=== PATIENT | female | born 1980 | race Caucasian/White ===

== ENCOUNTER 2016-06-28 23:56 | Emergency (ER) | payer BC ==
--- NOTE | ~2016-06-28 | ER ---
PATIENT'S NAME: JAZMYNE LE [facility] AGE: 36 Y [address] ROOM: [place] [address] LOCATION: [facility] ADMIT DATE: 06/28/2016 ER/Outpatient Report DISCHARGE DATE: 06/29/2016 FAMILY PHYSICIAN: Physician, Unknown ATTENDING PHYSICIAN: Kaylee Bosch HISTORY OF PRESENT ILLNESS: This is a 36-year-old female who presents today with chief complaint of nausea, vomiting, and diarrhea. This started approximately 6 hours ago, half an hour after eating chicken at a buffet. The patient hails from out of town. She has been in town because [place] [employer]. She reports nausea, vomiting, about four times now with actual vomit, nonbloody, nonbilious, and now just dry heaving. Also complaining of diarrhea multiple times, nonbloody, nonbilious. Also has epigastric pain. She says it is sharp and stabbing, and cramping in the lower abdomen. No one else is sick, but she is not sure if any one else ate the same food. No other complaints at this time. She did take her friend's Imodium, but nothing else. Reports her pain is a 7/10. PAST MEDICAL HISTORY: None. PAST SURGICAL HISTORY: None. SOCIAL HISTORY: She does not smoke or use drugs. She did have alcohol just one drink tonight. MEDICATIONS: Please see med list. ALLERGIES: PLEASE SEE MED LIST. REVIEW OF SYSTEMS: Reviewed by me and with the exception of those discussed in the HPI. PHYSICAL EXAMINATION: VITAL SIGNS: The patient is 5 feet 6 inches. She weighs 70.2 kilos. Heart rate is 88, respiratory rate is 20, temperature is 98.8, saturating 99% on room air, blood pressure 159/89 GENERAL: The patient looks uncomfortable. Kind of tearful actually. Not actively vomiting or retching, but she has her knees up on the bed and like huddled to her chest. Nontoxic though. Speaking to me in full sentences. HEART: Regular rate and rhythm. At this time, she is not tachycardic. PATIENT'S NAME: JAZMYNE LE [facility] AGE: 36 Y [address] ROOM: [place] [address] LOCATION: [facility] ADMIT DATE: 06/28/2016 ER/Outpatient Report DISCHARGE DATE: 06/29/2016 FAMILY PHYSICIAN: Physician, Unknown ATTENDING PHYSICIAN: Kaylee Bosch LUNGS: Sounds are clear. ABDOMEN: She has hyperactive bowel sounds, but normal inspection. Soft, nontender, nondistended. She has no epigastric tenderness. No right upper quadrant tenderness. Negative Alvarado's. No right lower quadrant tenderness. No left lower quadrant tenderness. SKIN: Warm, dry, and intact. EMERGENCY ROOM COURSE: An IV was established, and we checked a CBC and a CMS. The CBC showed a white count of 15, H and H of 15.3/44.8, platelets of 250. No bandemia though. Her CMP shows sodium 143, potassium 4, chloride 110, CO2 is 21, anion gap is 16, glucose is 138, BUN is 14, creatinine 0.8, total bilirubin is 0.6, alkaline phosphatase is 82, AST is 20, ALT is 30. GFR is greater than 60. Discussed this with the ER. She receives also Zofran, Bentyl, and GI cocktail, and I reassessed her and she looks a lot better. Says she feels a lot better. Discuss with her. This is likely by either viral gastroenteritis or some food poisoning; however she is nontoxic. Able to tolerate p.o. now. We will give her a script for Zofran and Bentyl. She will follow up appropriately with her doctor. IMPRESSION: Nausea, vomiting, diarrhea, and abdominal pain. MD MELISSA REESE/mima /[id number] d: 06/29/16511 t: 06/29/161817, OUTPATIENT REPORT
[2016-06-29 00:28] LABS: BASOPHIL % 0.3 %; EOSINOPHIL # 0.1 K/uL (0.0-0.5); EOSINOPHIL % 0.8 %; HEMATOCRIT 44.8 % (33.0-46.0); HEMOGLOBIN 15.3 g/dL (11.0-15.0); IMMATURE GRANULOCYTE # 0.1 K/uL (0.0-0.3); IMMATURE GRANULOCYTE % 0.3 %; LYMPHOCYTE # 0.9 K/uL (0.8-4.0); LYMPHOCYTE % 6.1 %; MCH 30.6 pg (27.0-34.0); MCHC 34.2 gm/dL (32.0-36.5); MCV 89.6 fl (83.0-98.0); MONOCYTE # 0.6 K/uL (0.0-1.0); MPV 10.8 fl (9.4-12.4); NEUTROPHIL # (ANC) 13.6 K/uL (1.8-7.8); NEUTROPHIL % 88.5 %; NRBC % 0 /100WBC (0-0.00); PLATELET COUNT 250 K/uL (150-450); RDW-CV 11.9 % (11.9-14.6); WBC 15.4 K/uL (4.0-11.0)
[2016-06-29 00:45] LABS: ALBUMIN 4.7 gm/dL (3.5-5.0); ALK PHOS 82 IU/L (33-138); ALT 30 IU/L (12-78); AST 20 IU/L (10-40); BLOOD UREA NITROGEN 14 mg/dL (6-24); CALCIUM 9.5 mg/dL (8.5-10.5); CHLORIDE 110 mMol/L (96-110); CO2 21 mMol/L (22-32); CREATININE 0.8 mg/dL (0.5-1.1); ESTIMATED GFR (MDRD EQUATION) > 60; SODIUM 143 mMol/L (135-145); TOTAL BILIRUBIN 0.6 mg/dL (0.0-1.5); TOTAL PROTEIN 8.7 g/dL (6.0-8.4)
== END 2016-06-29 01:15 | disposition disaster alternative care site (69) ==
LOC: GMED 23:56
PROVIDERS: Emergency Medicine
DX: R11.2 Nausea with vomiting, unspecified (principal); R19.7 Diarrhea, unspecified; R10.9 Unspecified abdominal pain
CPT/HCPCS: J0500; J2405; J7030